=== PATIENT | female | born 1940 | race Caucasian/White ===

== ENCOUNTER 2016-12-31 13:44 | Emergency (ER) | payer BC, MEDICARE ==
[~2016-12-31] VITALS: Ht 177.8 cm; Wt 66.9 kg
[~2016-12-31 13:44] MED LIST: [UNRECOGNIZED DRUG - REMARK]
[2016-12-31 13:47] VITALS: TEMP 98; Ht 177.8 cm; Wt 66.9 kg
--- OUTSIDE RECORDS SUMMARY | 2016-12-31 13:47 | XMS REPORT ---
Author Author Kendal Sow Organization [employer] Address Unknown Phone Unavailable Care Team Providers Care Hostess Name Role Phone Kendal Sow CP Unavailable Allergies No Known Allergies Problems Problem Type Condition ICD-9 Code Onset Dates Condition Status Problem Colon polyps 211.3 Active Problem Hypothyroidism 244.9 Active Problem Diverticulosis 562.10 Active Problem Hypercholesterolemia 272.0 Active Problem Constipation 564.00 Active Problem GERD (gastroesophageal reflux disease) 530.81 Active Medications Medication Code System Code Instructions Start Date End Date Status Dosage Synthroid [facility] [address]-46 75 MCG Orally Once a day 1 tablet on an empty stomach in the morning Results No Known Results Summary Purpose eClinicalWorks Submission
--- OUTSIDE RECORDS SUMMARY | 2016-12-31 13:47 | XMS REPORT | Continuity of Care Document ---
Author Author [facility] Organization [facility] Address Unknown Phone Unavailable Allergies Medications Problems Date Dx Coded Attending Type Code Diagnosis Diagnosed By 12/21/2013 Allen Ocampo MD Admitting 786.6 CHEST SWELLING/MASS/LUMP 12/21/2013 Allen Ocampo MD Admitting 786.6 CHEST SWELLING/MASS/LUMP Procedures Results Encounters ACCT No. Visit Date/Time Discharge Status Pt. Type Provider Facility Loc./Unit Complaint [id number] 12/21/2013 09:27:00 2013 23:59:59 CLS Outpatient Allen Ocampo MD [facility] on [facility]
--- OUTSIDE RECORDS SUMMARY | 2016-12-31 13:47 | XMS REPORT ---
Author Author Kendal Sow Organization [employer] Address Unknown Phone Unavailable Care Team Providers Care Courier Delivery Driver Name Role Phone Kendal Sow CP Unavailable Allergies, Adverse Reactions, Alerts Substance Reaction Event Type SULFA Info Not Available Drug Allergy Penicillin G Potassium Info Not Available Drug Allergy Problems Problem Type Condition ICD-9 Code Onset Dates Condition Status Assessment Need for influenza vaccination V04.81 Active Problem Constipation 564.00 Active Problem GERD (gastroesophageal reflux disease) 530.81 Active Problem Hypothyroidism 244.9 Active Assessment Constipation 564.00 Active Assessment Hypercholesterolemia 272.0 Active Problem Hypercholesterolemia 272.0 Active Assessment GERD (gastroesophageal reflux disease) 530.81 Active Medications Medication Code System Code Instructions Start Date End Date Status Dosage Synthroid [facility] [address]-54 75 MCG Orally Once a day Active 1 tablet on an empty stomach in the morning MiraLax [facility] [address]-66 Orally Once a day Active 1 packet mixed with 8 ounces of fluid Ranitidine HCl [facility] [address]-54 150 MG Orally Twice a day December 20, 2013 Active 1 tablet Ibuprofen [facility] [address]-70 200 MG Orally every 6 hrs Active 1 tablet as needed Procedures Procedure Coding System Code Date IMMUNIZATION ADMIN CPT-4 53933 Jun 20, 2014 OFFICE VISIT EST PATIENT LEVEL 3 CPT-4 93578 Jun 20, 2014 INFLUENZA IIV4 P-FREE AGE 3+ CPT-4 16901 Jun 20, 2014 Vital Signs Date/Time: Jun 20, 2014 BMI 19.08 Index Weight 133 lbs Height 70 in Blood Pressure Diastolic 90 mm Hg Blood Pressure Systolic 142 mm Hg Cardiac Monitoring Heart Rate 68 /min Temperature 97.6 F Respiratory Rate 18 /min Results No Known Results Immunizations Vaccine Administration Date *Influenza quadrivalent IIV4 (ages 3 and up) Jun 20, 2014 Summary Purpose eClinicalWorks Submission
--- OUTSIDE RECORDS SUMMARY | 2016-12-31 13:47 | XMS REPORT ---
Author Author Kendal Sow Organization [employer] Address Unknown Phone Unavailable Care Team Providers Care Rehabilitation Teacher Name Role Phone Kendal Sow CP Unavailable Allergies No Known Allergies Problems Problem Type Condition ICD-9 Code Onset Dates Condition Status Problem Colon polyps 211.3 Active Problem Hypothyroidism 244.9 Active Problem Diverticulosis 562.10 Active Problem Hypercholesterolemia 272.0 Active Problem Constipation 564.00 Active Problem GERD (gastroesophageal reflux disease) 530.81 Active Medications No Known Medications Results No Known Results Summary Purpose eClinicalWorks Submission
--- OUTSIDE RECORDS SUMMARY | 2016-12-31 13:47 | XMS REPORT ---
Author Author Ramón Bradshaw Organization [employer] Address Unknown Phone Unavailable Care Team Providers Care Health Economist Name Role Phone Ramón Bradshaw CP Unavailable Allergies No Known Allergies Problems Problem Type Condition ICD-9 Code Onset Dates Condition Status Problem Colon polyps 211.3 Active Problem Hypothyroidism 244.9 Active Problem Diverticulosis 562.10 Active Problem Hypercholesterolemia 272.0 Active Problem Constipation 564.00 Active Problem GERD (gastroesophageal reflux disease) 530.81 Active Medications Medication Code System Code Instructions Start Date End Date Status Dosage Synthroid [facility] [address]-53 75 MCG Orally Once a day 1 tablet on an empty stomach in the morning Results No Known Results Summary Purpose eClinicalWorks Submission
--- OUTSIDE RECORDS SUMMARY | 2016-12-31 13:47 | XMS REPORT ---
Author Author Kendal Sow Organization [employer] Address Unknown Phone Unavailable Care Team Providers Care International Marketing Specialist Name Role Phone Kendal Sow CP Unavailable Allergies, Adverse Reactions, Alerts Substance Reaction Event Type SULFA Info Not Available Drug Allergy Penicillin G Potassium Info Not Available Drug Allergy Problems Problem Type Condition Code Onset Dates Condition Status Assessment Diverticulosis 562.10 Active Assessment Hypercholesterolemia 272.0 Active Assessment Hypothyroidism 244.9 Active Assessment Constipation 564.00 Active Assessment Colon polyps 211.3 Active Problem Colon polyps 211.3 Active Problem Hypothyroidism 244.9 Active Problem Diverticulosis 562.10 Active Problem Hypercholesterolemia 272.0 Active Assessment GERD (gastroesophageal reflux disease) 530.81 Active Problem Constipation 564.00 Active Problem GERD (gastroesophageal reflux disease) 530.81 Active Medications Medication Code System Code Instructions Start Date End Date Status Dosage MiraLax [facility] [address]-99 Orally Once a day 1 packet mixed with 8 ounces of fluid Ibuprofen [facility] [address]-11 200 MG Orally every 6 hrs 1 tablet as needed Synthroid [facility] [address]-28 75 MCG Orally Once a day 1 tablet on an empty stomach in the morning Procedures Procedure Coding System Code Date COMPREHEN METABOLIC PANEL CPT-4 15034 December 28, 2014 LIPID PANEL CPT-4 99669 December 28, 2014 COMPLETE CBC WAUTO DIFF WBC CPT-4 23207 December 28, 2014 ASSAY THYROID STIM HORMONE CPT-4 06624 December 28, 2014 ASSAY, TRIIODOTHYRONINE (T3) CPT-4 21264 December 28, 2014 OFFICE VISIT EST PATIENT LEVEL 3 CPT-4 43462 December 28, 2014 ROUTINE VENIPUNCTURE CPT-4 58459 December 28, 2014 Vital Signs Date/Time: December 28, 2014 BMI 19.37 Index Weight 135 lbs Height 70 in Blood Pressure Diastolic 88 mm Hg Blood Pressure Systolic 124 mm Hg Cardiac Monitoring Heart Rate 72 /min Temperature 97.7 F Respiratory Rate 18 /min Results No Known Results Summary Purpose eClinicalWorks Submission
--- OUTSIDE RECORDS SUMMARY | 2016-12-31 13:47 | XMS REPORT ---
Author Author Kendal Sow Organization [employer] Address Unknown Phone Unavailable Care Team Providers Care Graphic Design Intern Name Role Phone Kendal Sow CP Unavailable Allergies, Adverse Reactions, Alerts Substance Reaction Event Type SULFA Info Not Available Drug Allergy Penicillin G Potassium Info Not Available Drug Allergy Problems Problem Type Condition ICD-9 Code Onset Dates Condition Status Problem Constipation 564.00 Active Problem GERD (gastroesophageal reflux disease) 530.81 Active Problem Hypothyroidism 244.9 Active Assessment Constipation 564.00 Active Assessment GERD (gastroesophageal reflux disease) 530.81 Active Problem Hypercholesterolemia 272.0 Active Assessment Hypothyroidism 244.9 Active Medications Medication Code System Code Instructions Start Date End Date Status [facility] [address]-11 Orally Once a day Active 1 packet mixed with 8 ounces of fluid Ibuprofen [facility] [address]-13 200 MG Orally every 6 hrs Active 1 tablet as needed Synthroid [facility] [address]-80 75 MCG Orally Once a day Active 1 tablet on an empty stomach in the morning Ranitidine HCl [facility] [address]-55 150 MG Orally Twice a day December 20, 2013 Active 1 tablet Fluconazole [facility] [address]-26 200 MG Orally Once a day Active 1 tablet Procedures Procedure Coding System Code Date OFFICE VISIT EST PATIENT LEVEL 3 CPT-4 66952 Apr 06, 2014 Vital Signs Date/Time: Apr 06, 2014 Weight 130.4 lbs Height 70 in Blood Pressure Diastolic 84 mm Hg Blood Pressure Systolic 130 mm Hg Cardiac Monitoring Heart Rate 80 /min Temperature 98.3 F Respiratory Rate 20 /min Results No Known Results Summary Purpose eClinicalWorks Submission
--- OUTSIDE RECORDS SUMMARY | 2016-12-31 13:47 | XMS REPORT ---
Author Author Kendal Sow Organization [employer] Address Unknown Phone Unavailable Care Team Providers Care Inspector Water Pollution Control Name Role Phone Kendal Sow CP Unavailable Allergies No Known Allergies Problems Problem Type Condition ICD-9 Code Onset Dates Condition Status Problem Constipation 564.00 Active Problem GERD (gastroesophageal reflux disease) 530.81 Active Problem Hypothyroidism 244.9 Active Problem Hypercholesterolemia 272.0 Active Assessment Hypercholesterolemia 272.0 Active Medications Medication Code System Code Instructions Start Date End Date Status Dosage Synthroid [facility] [address]-24 75 MCG Orally Once a day Active 1 tablet on an empty stomach in the morning MiraLax [facility] [address]-09 Orally Once a day Active 1 packet mixed with 8 ounces of fluid Ibuprofen [facility] [address]-17 200 MG Orally every 6 hrs Active 1 tablet as needed Procedures Procedure Coding System Code Date HEPATIC FUNCTION PANEL CPT-4 50635 Jun 21, 2014 ROUTINE VENIPUNCTURE CPT-4 49793 Jun 21, 2014 LIPID PANEL CPT-4 40906 Jun 21, 2014 Results Name Result Date Reference Range Unit Venipuncture Lipid Panel Summary Purpose eClinicalWorks Submission
--- OUTSIDE RECORDS SUMMARY | 2016-12-31 13:47 | XMS REPORT ---
Author Author Ramón Bradshaw [facility] e[employer] Address Unknown Phone Unavailable Care Team Providers Care Shoe Coverer Name Role Phone Ramón Bradshaw CP Unavailable Allergies No Known Allergies Problems Problem Type Condition ICD-9 Code Onset Dates Condition Status Problem Colon polyps 211.3 Active Problem Hypothyroidism 244.9 Active Problem Diverticulosis 562.10 Active Problem Hypercholesterolemia 272.0 Active Assessment Encounter for screening colonoscopy V76.51 Active Problem Constipation 564.00 Active Problem GERD (gastroesophageal reflux disease) 530.81 Active Medications No Known Medications Results No Known Results Summary Purpose eClinicalWorks Submission
--- OUTSIDE RECORDS SUMMARY | 2016-12-31 13:47 | XMS REPORT ---
Author Author Kendal Sow Organization [employer] Address Unknown Phone Unavailable Care Team Providers Care Blueprint Machine Operator Name Role Phone Kendal Sow CP Unavailable Allergies No Known Allergies Problems Problem Type Condition ICD-9 Code Onset Dates Condition Status Problem Constipation 564.00 Active Problem GERD (gastroesophageal reflux disease) 530.81 Active Problem Hypothyroidism 244.9 Active Problem Hypercholesterolemia 272.0 Active Assessment Hypercholesterolemia 272.0 Active Medications Medication Code System Code Instructions Start Date End Date Status Dosage Flaxseed Oil [facility] [address]-13 1000 MG Orally once a day Jun 24, 2014 Sep 26, 2014 Active as directed Ibuprofen [facility] [address]-10 200 MG Orally every 6 hrs Active 1 tablet as needed Synthroid [facility] [address]-73 75 MCG Orally Once a day Active 1 tablet on an empty stomach in the morning MiraLax [facility] [address]-17 Orally Once a day Active 1 packet mixed with 8 ounces of fluid Results No Known Results Summary Purpose eClinicalWorks Submission
--- OUTSIDE RECORDS SUMMARY | 2016-12-31 13:47 | XMS REPORT ---
Author Author Kendal Sow Organization [employer] Address Unknown Phone Unavailable Care Team Providers Care Reservation Clerk Name Role Phone Kendal Sow CP Unavailable Allergies No Known Allergies Problems Problem Type Condition ICD-9 Code Onset Dates Condition Status Problem Constipation 564.00 Active Problem GERD (gastroesophageal reflux disease) 530.81 Active Problem Hypothyroidism 244.9 Active Problem Hypercholesterolemia 272.0 Active Medications Medication Code System Code Instructions Start Date End Date Status Dosage Synthroid [facility] [place] [address]-88 75 MCG Orally Once a day Active 1 tablet on an empty stomach in the morning Results No Known Results Summary Purpose eClinicalWorks Submission
--- OUTSIDE RECORDS SUMMARY | 2016-12-31 13:48 | XMS REPORT ---
Author Author Kendal Sow Organization [employer] Address Unknown Phone Unavailable Care Team Providers Care Lumber Press Operator Name Role Phone Kendal Sow CP Unavailable Allergies No Known Allergies Problems Problem Type Condition ICD-9 Code Onset Dates Condition Status Problem Colon polyps 211.3 Active Problem Hypothyroidism 244.9 Active Problem Diverticulosis 562.10 Active Problem Hypercholesterolemia 272.0 Active Problem Constipation 564.00 Active Problem GERD (gastroesophageal reflux disease) 530.81 Active Medications Medication Code System Code Instructions Start Date End Date Status Dosage Synthroid [facility] [address]-42 75 MCG Orally Once a day 1 tablet on an empty stomach in the morning Results No Known Results Summary Purpose eClinicalWorks Submission
--- OUTSIDE RECORDS SUMMARY | 2016-12-31 13:48 | XMS REPORT ---
Author Author Ramón Bradshaw [facility] e[employer] Address Unknown Phone Unavailable Care Team Providers Care Quality Improvement Coordinator Name Role Phone Ramón Bradshaw CP Unavailable [...]
--- NOTE | 2016-12-31 13:59 | NUR ---
REPORT TO ERICA GAMEZ
[2016-12-31] MEDS ORDERED: LEVO75TA4 PO (14:00)
[2016-12-31] MEDS ORDERED: LACT1CAP80 PO (14:00)
[2016-12-31] MEDS ORDERED: IBUP-1724 PO (14:00)
[2016-12-31] MEDS ORDERED: HYDR12.530 PO (14:00)
--- NOTE | 2016-12-31 14:03 | ERPDOC ---
Departure Disposition Decision Date: December 31, 2016 Disposition Decision Time: 15:21 Disposition: 01 DISCHARGED HOME, SELF-CARE Impression Impression Impression: Primary Impression: Abdominal pain Abdominal location: left lower quadrant Qualified Codes: R10.32 - Left lower quadrant pain Severity: Moderate Condition: Improved Seen By: Physician only Referrals: JULIO CESAR STYLES MD (Family) 2 Days Patient Instructions: Abdominal Pain (ED) Problems/Meds/Labs Reviewed?: Yes Medications reviewed and manag: Yes Follow up care ordered?: Yes Mental Status: Alert, Oriented Scripts Ondansetron (Zofran Odt) 4 Mg Tab.rapdis 4 MG PO Q4HR Y for NAUSEA &/OR VOMITING for 3 Days, #18 TAB 0 Refills Prov: LIVIA SUNSHINE DO 12/31/16 Hydrocodone/Acetaminophen (Joanna 5-325 Tablet) 5-325 Tablet 1 TAB PO Q4HR Y for PAIN for 3 Days, #18 TAB 0 Refills Prov: LIVIA SUNSHINE DO 12/31/16 HPI - Abdominal Pain General Chief Complaint: Abdominal Pain Stated Complaint: ABD PAIN Time Seen by Provider: 13:47 Source: patient History/Exam Limitations: no limitations HPI - Abdominal Pain Initial Comments 76-year-old female presents to emergency department with a chief complaint of left lower quadrant abdominal pain. Patient noted onset of symptoms earlier today. Patient was at home when the symptoms began. Patient denies any trauma , travel, poorly prepared food, or recent antibiotic use. She denies any other complaints or associated symptoms. She does not note any exacerbating or remitting factors. Pain is moderate. Pain is sharp. There is no radiation. Patient has a history of similar symptoms in the past with acute diverticulitis. Occurred At: home Onset: Gradual Allergies: Coded Allergies: Penicillins (Unverified Allergy, Unknown, 12/31/16) Sulfa (Sulfonamide Antibiotics) (Unverified Allergy, Unknown, 12/31/16) Past History Past Medical History Metabolic: hypothyroidism Surgical History Denies Surgeries Family History Family History: Negative Social History Smoking Status: Never smoker Substance Use Type: does not use Alcohol Intake: none Review of Systems Constitutional Constitutional: DENIES: chills, fever Eyes General: DENIES: erythema, exudate Lids/Accessories: DENIES: erythema, swelling Vision: DENIES: acuity, blurring ENMT Ears: DENIES: drainage, erythema Hearing: DENIES: hearing loss Balance: DENIES: ataxia, falling to one side Sinuses: DENIES: congestion, pain Nose: DENIES: nosebleeds, pain Mouth/Throat: DENIES: painful swallowing, sore throat Teeth: DENIES: pain Jaw: DENIES: pain Cardiovascular Cardiac: DENIES: chest pain, dyspnea on exertion Rhythm/Rate: DENIES: irregular beat, palpitations Vascular: DENIES: pedal edema, unilateral swelling Pulmonary Respiratory: DENIES: cough, dyspnea, pleuritic chest pain, sputum GI Upper Abdomen: DENIES: nausea, pain, vomiting Lower Abdomen: pain, DENIES: diarrhea General: DENIES: burning, dysuria, frequency, urgency Musculoskeletal General: DENIES: joint pain, tenderness Integumentary Skin: DENIES: itching, rash Neurological General: DENIES: headache, numbness, weakness Psychiatric Psychiatric: DENIES: emotional instability, suicidal ideation/attempt Endocrine Endocrine: DENIES: polydipsia, polyphagia Hematologic/Lymphatic Hematologic/Lymphatic: DENIES: frequent nosebleeds, lymphadenopathy Allergic/Immunological Allergic/Immunoligical: DENIES: allergic reactions, hives Physical Exam General General Nourishment: well nourished, well developed, appears stated age, no acute distress, adult General Body Habitus: well groomed Vitals and Pain First Documented Vital Signs Date Time Temp Pulse Resp B/P Pulse Ox O2 Delivery O2 Flow Rate FiO2 12/31/16 13:47 98.0 75 20 163/79 98 Room Air Weight: Kilograms: 66.900 Height (feet): 5 Height (inches): 10.00 Triage Pain Scale: RN VS reviewed by Provider: Yes Normal Exams: Head: Normocephalic w/o trauma Eyes: Pupils are PERRLA w/ EOMI, No scleral icterus, irritation, or foreign bodies noted ENMT: No facial trauma, nasal exudates, pharyngeal erythema, or exudates are noted Dental: No fractured, loose, or missing teeth noted Neck: Full range of motion, without adenopathy, JVD, bruits or thyromegaly Chest/Resp: Clear all herring, with good airflow, and symmetry bilaterally CV: Regular rate and rhythm, without murmur or gallop, Pulses 2+ all extremities, capillary refill, <2 seconds all ext., no pedal edema noted Abdomen: Bowel sounds positive, non-distended, no hepatosplenomegaly, masses or bruits noted Lymphatic: No lymphadenopathy, or lymphedema noted Musculoskeletal: No tenderness, or deformity noted, good range of motion, all extremities Integumentary: No rashes, hives, or bruising noted, hair and nails, without abnormality Neurologic: Patient is alert, and oriented, cranial nerves, motor/sensory/ cerebellar, exams w/o gross deficits, to observation Psychiatric: Patient exhibits, appropriate attention, emotion and affect Abdomen (brief) Abdominal Brief: FOUND: soft Comments Mild tender to palpation in the left lower quadrant. No rebound or guarding. No CVA tenderness. Nondistended. Bowel sounds active in all 4 quadrants. Differential Diagnoses Considering: Diverticulitis, IBS, Ileus, UTI Progress Results/Orders Orders Procedure Category Date Status Time Cbc W/Auto LAB 12/31/16 Complete Diff-Reflex Manual Cmp - Comprehensive LAB 12/31/16 Complete Metabolic Lipase LAB 12/31/16 Complete Ua, Dip Wreflex LAB 12/31/16 Complete Microsc & Outpatient Phlebotomist 13:52 Iv Lock (Ed Only) EDM 12/31/16 Transmitted 13:52 Iv Lock (Ed Only) EDM 12/31/16 Transmitted 14:01 Ct Abd/Pelvis CT 12/31/16 Resulted W/Contrast Only 14:01 Normal Saline (Ns) PHA 12/31/16 Complete 14:15 Iohexol (Omnipaque) PHA 12/31/16 Complete 14:27 Normal Saline (Ns) PHA 12/31/16 Complete 14:27 Saline Flush (Iv PHA 12/31/16 Complete Flush) 14:27 Potassium Chloride PHA 12/31/16 Complete (Kdur) 15:15 Lab Results Laboratory Tests Test 12/31/16 14:07 12/31/16 15:04 White Blood Count 3.9T/MM3 Red Blood Count 4.12M/MM3 Hemoglobin 12.7GM/DL Hematocrit 38.1% Mean Corpuscular Volume 92.5UM3 Mean Corpuscular Hemoglobin 30.8UUG Mean Corpuscular Hemoglobin Concent 33.3GM/DL RDW Standard Deviation 44.6FL Platelet Count 193T/MM3 Mean Platelet Volume 10.7UM3 Immature Granulocyte % (Auto) 0.0% Neutrophils (%) (Auto) 55.5% Lymphocytes (%) (Auto) 32.5% Monocytes (%) (Auto) 10.0% Eosinophils (%) (Auto) 1.5% Basophils (%) (Auto) 0.5% Absolute Immature Granulocyte (auto 0.00T/MM3 Absolute Neutrophils (auto) 2.2T/MM3 Absolute Lymphocytes (auto) 1.3T/MM3 Absolute Monocytes (auto) 0.4T/MM3 Absolute Eosinophils (auto) 0.1T/MM3 Absolute Basophils (auto) 0.0T/MM3 Turbidity < 20 Sodium Level 142MEQ/L Potassium Level 3.3MEQ/L Chloride Level 103MEQ/L Carbon Dioxide Level 30MEQ/L Anion Gap 9MEQ/L Blood Urea Nitrogen 12.0MG/DL Creatinine 0.8MG/DL Glomerular Filtration Rate Calc 70 BUN/Creatinine Ratio 15RATIO Glucose Level 130MG/DL Calculated Osmolality 275MOSM/KG Calcium Level 9.5MG/DL Total Bilirubin 0.80MG/DL Icterus Index < 2 Aspartate Amino Transf (AST/SGOT) 25U/L Alanine Aminotransferase (ALT/SGPT) 22U/L Alkaline Phosphatase 60U/L Total Protein 6.8G/DL Albumin 4.5G/DL Globulin 2.3G/DL Albumin/Globulin Ratio 2.0RATIO Lipase 50U/L Chemistry Specimen Hemolysis < 15 Urine Collection Type Cleancatch-midstream Urine Color Yellow Urine Turbidity Clear Urine pH 6.5 Urine Specific Sm[place] <=1.005 Urine Protein Negative Urine Glucose (UA) Negative Urine Ketones Negative Urine Blood Negative Urine Nitrite Negative Urine Bilirubin Negative Urine Urobilinogen 0.2EU/DL Urine Leukocyte Esterase Negative Urinalysis Comment Microscopic not ind. Medications Current ED Medications Sodium Chloride (NS) 500 ml @ 999 mls/hr Q31M ONCE IV ; Start 12/31/16 at 14:15 ; Stop 12/31/16 at 14:45; Status DC Iohexol 1 bottle 1 bottle STK-MED ONCE .ROUTE ; Start 12/31/16 at 14:27; Stop at 14:28; Status DC Sodium Chloride (NS) 100 ml @ As Directed STK-MED ONCE .ROUTE ; Start 12/31/16 at 14:27; Stop 12/31/16 at 14:28; Status DC Sodium Chloride (Iv Flush) 10 ml STK-MED ONCE .ROUTE ; Start 5/30/17 at 14:27; Stop 12/31/16 at 14:28; Status DC Potassium Chloride (Kdur) 40 meq O ONCE PO Last administered on 12/31/16t 15: 35; Start 12/31/16 at 15:15; Stop 12/31/16 at 15:16; Status DC Progress Progress Labs / imaging were discussed in detail with the patient and family and questions are answered. Patient is ordered IV hydration which she declines. Patient declines offered analgesic and antiemetic pain medication in the emergency department. She is discharged home in improved condition. She is to follow up as instructed. patient is to encourage oral hydration at home this evening. Prescriptions for Zofran and Joanna are provided. She is in agreement with the current plan of management. She is to return to the emergency Department if her condition worsens or changes in any manner. Patient and family are in agreement with the current plan of management. CT CT : CT: Abd/Pelvis IV contrast Interpretation: Normal LIVIA SUNSHINE DO December 31, 2016 14:03
[2016-12-31] MEDS ORDERED: NORMAL SALINE 500 ML IV ONE (14:15)
[2016-12-31 14:17] LABS: BASOPHILS % (AUTO) 0.5 % (0-2); EOSINOPHILS # (AUTO) 0.1 T/MM3 (0-0.5); EOSINOPHILS % (AUTO) 1.5 % (0-4); HCT - HEMATOCRIT 38.1 % (36-46); HGB - HEMOGLOBIN 12.7 GM/DL (12-16); LYMPHOCYTES # (AUTO) 1.3 T/MM3 (1-4.8); LYMPHOCYTES % (AUTO) 32.5 % (23-45); MEAN CORPUSCULAR HGB 30.8 UUG (26-34); MEAN CORPUSCULAR HGB CONC(MCHC 33.3 GM/DL (31-37); MEAN CORPUSCULAR VOLUME 92.5 UM3 (80-100); MEAN PLATELET VOLUME 10.7 UM3 (9.4-12.4); MONOCYTES # (AUTO) 0.4 T/MM3 (0-0.8); NEUTROPHILS #(AUTO)-ABSOLUTE 2.2 T/MM3 (1.8-7.7); NEUTROPHILS % (AUTO) 55.5 % (33-66); RED BLOOD COUNT 4.12 M/MM3 (4.00-5.20); WBC - WHITE BLOOD COUNT 3.9 T/MM3 (4.5-11.0)
[2016-12-31 14:23] LABS: ALBUMIN 4.5 G/DL (3.5-5.0); ALKALINE PHOSPHATASE 60 U/L (38-126); ALT (SGPT) 22 U/L (9-52); ANION GAP 9 MEQ/L (5-15); AST (SGOT) 25 U/L (14-36); BUN/CREATININE RATIO 15 RATIO (6-26); CALCIUM 9.5 MG/DL (8.4-10.2); CHLORIDE 103 MEQ/L (98-107); CO2 - CARBON DIOXIDE 30 MEQ/L (22-30); CREATININE 0.8 MG/DL (0.7-1.2); GLOMERULAR FILTRATION RATE 70; GLUCOSE 130 MG/DL (65-110); POTASSIUM 3.3 MEQ/L (3.6-5); SODIUM 142 MEQ/L (134-144); TOTAL PROTEIN 6.8 G/DL (6.3-8.2)
--- OUTSIDE RECORDS SUMMARY | 2016-12-31 14:23 | XMS REPORT | Continuity of Care Document ---
Author Author [facility] Organization [facility] Address Unknown Phone Unavailable Allergies Medications Problems Date Dx Coded Attending Type Code Diagnosis Diagnosed By 12/21/2013 Allen Ocampo MD Admitting 786.6 CHEST SWELLING/MASS/LUMP 12/21/2013 Allen Ocampo MD Admitting 786.6 CHEST SWELLING/MASS/LUMP Procedures Results Encounters ACCT No. Visit Date/Time Discharge Status Pt. Type Provider Facility Loc./Unit Complaint [id number] 12/21/2013 09:27:00 2013 23:59:59 CLS Outpatient Allen Ocampo MD [facility] on [address]
[2016-12-31] MEDS ORDERED: SALINE FLUSH 10ml SYRINGE ONE (14:27)
[2016-12-31] MEDS ORDERED: NORMAL SALINE 100 ML ONE (14:27)
[2016-12-31] MEDS ORDERED: IOHEXOL 300 MG/ML 100ml INJECTION ONE (14:27)
--- NOTE | 2016-12-31 14:56 | NUR ---
UA Pt up to restroom, urine specimen collected at this time and sent to lab
--- NOTE | 2016-12-31 15:08 | DI ---
Indication: ITS.REASON: LLQ Pain PROCEDURE: CT ABD/PELVIS W/CONTRAST ONLY: Encounter: Initial Comparison: CT abdomen dated January 16, 2010 Technique: Axial CT images were performed through the abdomen and pelvis after the administration of intravenous contrast. Coronal and sagittal two-dimensional reformats. Automated Exposure Control and Iterative Reconstruction dose reducing techniques were utilized. Contrast: Omnipaque 300 89 mL Findings: Small bleb in the right lower lobe. Lung bases are otherwise clear. The liver is normal. The gallbladder is decompressed. The spleen, pancreas and adrenal glands are within normal limits. The kidneys are normal. No abdominal or pelvic adenopathy. Bladder is normal. Uterus is unremarkable. No free fluid. Moderate sigmoid diverticulosis without evidence of acute diverticulitis. No evidence of a bowel obstruction. The appendix is normal. No free air. Pelvic phleboliths. Scoliosis and degenerative change in the lumbar spine. Impression: No acute disease process seen. .
[2016-12-31 15:09] LABS: LIPASE 50 U/L (23-300)
[2016-12-31 15:09] LABS: BLOOD, URINE NEGATIVE (NEGATIVE); COLOR,URINE YELLOW (YELLOW); LEUKOCYTE ESTERASE ,URINE NEGATIVE (NEGATIVE); NITRITE,URINE NEGATIVE (NEGATIVE); UROBILINOGEN,URINE 0.2 EU/DL (NORMAL)
[2016-12-31] MEDS ORDERED: POTASSIUM CHLORIDE 20 MEQ TABLET PO ONE (15:15)
--- NOTE | 2016-12-31 15:20 | NUR ---
PROVIDER @ BEDSIDE DR. SUNSHINE AT BEDSIDE DISCUSSING TEST RESULTS AND DISCUSSING DISCHARGE PLAN OF CARE.
[2016-12-31] MEDS ORDERED: HYDR-4246 PO (15:22)
[2016-12-31] MEDS ORDERED: ONDA4TAB7 PO (15:22)
[2016-12-31 16:43] VITALS: BP 146/73; PULSE 69; RESP 16; O2SAT 97
== END 2016-12-31 15:43 | disposition home or self-care (01) ==
LOC: ED 13:44
DX: R10.32 Left lower quadrant pain (principal)
CPT/HCPCS: 36415; 74177; 80053; 81003; 83690; 85025; 99284; A9270; J7050; Q9967